=== PATIENT | male | born 2000 | race Caucasian/White ===

== ENCOUNTER 2023-08-08 04:06 | Day surgery (SDC) | payer OTHER ==
[2023-08-08] VITALS (231 sets, daily range): BP systolic 85–135; BP diastolic 54–120
[~2023-08-08] VITALS: Ht 170.2 cm; Wt 79.2 kg
[2023-08-08] MEDS ORDERED: ACETAMINOPHEN 500 MG TAB PO ONE (07:25)
[2023-08-08] MEDS ORDERED: diazePAM 5 MG/TAB PO PRN ×2 (07:30→08:30)
[2023-08-08] MEDS ORDERED: ALBUTEROL SULFATE 2.5 MG VIAL IN PRN (07:30)
[2023-08-08] MEDS ORDERED: CYANOCOBALAMIN 500 MCG/TAB ( B12) PO PRN (07:30)
[2023-08-08] MEDS ORDERED: LACTATED RINGER'S 1,000 ML IV PRN ×3 (07:30→19:00)
[2023-08-08] MEDS ORDERED: cloNIDine HCL 0.1 MG/TAB PO PRN (07:30)
[2023-08-08] MEDS ORDERED: PANTOPRAZOLE SODIUM Sesquihydr 40 MG/TAB PO PRN (07:30)
[2023-08-08] MEDS ORDERED: SCOPOLAMINE 1.5 MG DIS TD PRN (07:30)
[2023-08-08] MEDS ORDERED: FAMOTIDINE 20 MG/TAB PO PRN (07:30)
[2023-08-08] MEDS ORDERED: ASCORBIC ACID 4,000 MG in SODIUM CHLORIDE 0.9% 1,000 ML IV SCH (08:00)
[2023-08-08 08:34] LABS: BASO% 0.3 % (0-3); EOS% 3.8 % (0-8); HEMATOCRIT 39.3 % (39.0-50.0); IMMATURE GRANULOCYTES 0.1 % (0.0-5.0); LYMPH% 31.5 % (15-41); MEAN CELL VOLUME 96.1 fL CALC (80.0-100.0); MEAN CORPUSCULAR HGB 31.8 pG CALC (26.0-32.0); MEAN CORPUSCULAR HGB CONC 33.1 g/dL CAL (32.0-36.0); MONO% 6.4 % (2-13); NEUT# 4.29 thou/uL (1.82-7.42); NEUT% 57.9 % (42-76); RED BLOOD COUNT 4.09 mill/uL (4.70-6.10); RED CELL DISTRI WIDTH 12.5 % (11.5-15.5)
[2023-08-08 08:58] LABS: ALBUMIN 4.4 g/dL (3.2-5.0); ALKALINE PHOSPHATASE 56 u/l (38-126); ANION GAP 6 (6-22 (CALC)); BILIRUBIN, TOTAL 0.2 mg/dL (0.2-1.3); BUN 17 mg/dL (9-20); BUN/CREATININE RATIO 19 (12-20 (CALC)); CARBON DIOXIDE 31 mmol/l (22-30); CHLORIDE 105 mmol/l (95-108); CREATININE 0.9 mg/dL (0.7-1.3); GFR FOR AFR.AMER. > 60 ML/MIN (>=60 (CALC)); GFR OTHER RACES > 60 ML/MIN (>=60 (CALC)); POTASSIUM 3.9 mmol/l (3.5-5.1); SGOT/AST 27 u/l (17-59); SODIUM 139 mmol/l (137-146); TOTAL PROTEIN 6.6 g/dL (6.3-8.2)
[2023-08-08] MEDS ORDERED: XANAX0.25 MG PO (09:49)
[2023-08-08] MEDS ORDERED: POTASSIUM CHLORIDE 20 MEQ/100 ML BAG IV PRN (10:10)
[2023-08-08] MEDS ORDERED: LIDOCAINE HCL 1% (10MG/ML) 100 MG/10 ML MDV IV PRN (10:10)
[2023-08-08] MEDS ORDERED: cloNIDine HCL 0.1 MG/TAB VT PRN (10:10)
[2023-08-08] MEDS ORDERED: DEXAMETHASONE SOD. PHOSPHATE 10 MG/ML VIAL IV PRN (10:10)
[2023-08-08] MEDS ORDERED: MIDAZOLAM HCL 2 MG/2 ML VIAL IV PRN (10:10)
[2023-08-08] MEDS ORDERED: THIAMINE HCL 100 MG/ML 2ML VIAL IV PRN (10:10)
[2023-08-08] MEDS ORDERED: OCTREOTIDE ACETATE 100 MCG/VIAL SDV SC PRN (10:10)
[2023-08-08] MEDS ORDERED: NALTREXONE HCL 50 MG/TAB VT PRN (10:10)
[2023-08-08] MEDS ORDERED: ONDANSETRON HCl 4 MG/2 ML SDV IV PRN ×3 (10:10→19:00)
[2023-08-08] MEDS ORDERED: DiphenhydrAMINE HCL 50 MG/ML SDV IV PRN (10:10)
[2023-08-08] MEDS ORDERED: diazePAM 5 MG/TAB VT PRN (10:10)
[2023-08-08] MEDS ORDERED: PROPOFOL 100 ML IV PRN (10:10)
[2023-08-08] MEDS ORDERED: STERILE WATER FOR IRRIGATION 1,000 ML BTL IR PRN (10:10)
[2023-08-08] MEDS ORDERED: LIDOCAINE HCL 1% (10MG/ML) 100 MG/10 ML MDV VT PRN ×2 (10:10)
[2023-08-08] MEDS ORDERED: MAGNESIUM SULFATE HEPTAHYDRATE 100 ML IV PRN (10:10)
[2023-08-08] MEDS ORDERED: cloNIDine HYDROCHLORIDE 100 MCG/ML 10 ML INJ IV PRN (10:10)
[2023-08-08] MEDS ORDERED: PROPOFOL 10 MG/ML 100ML VIAL IV PRN (10:10)
[2023-08-08] MEDS ORDERED: SUCCINYLCHOLINE CHLORIDE 20 MG/ML 10ML VIAL IV PRN (10:10)
[2023-08-08] MEDS ORDERED: ROCURONIUM BROMIDE 10 MG/ML 5ML VIAL IV PRN (10:10)
[2023-08-08] MEDS ORDERED: PHENYLEPHRINE HCL 10 MG/ML VIAL ONE (10:43)
[2023-08-08] MEDS ORDERED: SODIUM CHLORIDE 0.9% 250 ML IV ONE (10:43)
[2023-08-08] MEDS ORDERED: NALTREXONE50 MG PO (13:04)
[2023-08-08] MEDS ORDERED: CLONIDINE0.1 MG PO (13:04)
[2023-08-08] MEDS ORDERED: KLONOPIN2 MG PO (13:04)
[2023-08-08] MEDS ORDERED: Pantoprazole Sodium 40 MG VIAL (Protonix) IV SCH (17:30)
[2023-08-08] MEDS ORDERED: NICOTINE TRANSDERMAL 21 MG/PATCH TD SCH (18:45)
[2023-08-08] MEDS ORDERED: SCOPOLAMINE 1.5 MG DIS TD SCH (18:45)
[2023-08-08] MEDS ORDERED: ACETAMINOPHEN 1,000 MG/100 ML VIAL IV PRN (19:00)
[2023-08-08] MEDS ORDERED: PROMETHAZINE HCL 12.5 MG in SODIUM CHLORIDE 0.9% 50 ML IV PRN (19:00)
[2023-08-08] MEDS ORDERED: PROMETHAZINE HCL 25 MG in SODIUM CHLORIDE 0.9% 50 ML IV PRN (19:00)
[2023-08-08] MEDS ORDERED: HALOPERIDOL LACTATE 5 MG/ML SDV IV PRN (19:00)
[2023-08-08] MEDS ORDERED: KETOROLAC TROMETHAMINE 30 MG/ML SDV IV PRN (19:00)
[2023-08-08] MEDS ORDERED: DEXAMETHASONE SODIUM PHOSPHATE PF 10 MG/ML SDV IV PRN (19:00)
[2023-08-08] MEDS ORDERED: ACETAMINOPHEN 500 MG TAB PO PRN (19:00)
[2023-08-08] MEDS ORDERED: diazePAM 10 MG/2 ML VIAL IV PRN (21:00)
[2023-08-08] MEDS ORDERED: PATIENT' OWN MED CONTROLLED 1 EA DOSE IV PRN (21:00)
[2023-08-08] MEDS ORDERED: clonazePAM 1 MG/TAB PO SCH (23:00)
[2023-08-08] MEDS ORDERED: cloNIDine HCL 0.1 MG/TAB PO SCH (23:00)
[2023-08-09] MEDS ORDERED: clonazePAM 1 MG/TAB PO PRN ×2 (04:00→08:00)
[2023-08-09] MEDS ORDERED: cloNIDine HCL 0.1 MG/TAB PO PRN (04:00)
[2023-08-09 06:29] LABS: BASO% 0.1 % (0-3); HEMATOCRIT 40.6 % (39.0-50.0); HEMOGLOBIN 14.2 g/dl (14.0-18.0); IMMATURE GRANULOCYTES 0.2 % (0.0-5.0); LYMPH% 5.9 % (15-41); MEAN CELL VOLUME 92.1 fL CALC (80.0-100.0); MEAN CORPUSCULAR HGB 32.2 pG CALC (26.0-32.0); MONO% 1.3 % (2-13); NEUT# 13.72 thou/uL (1.82-7.42); NEUT% 92.5 % (42-76); RED BLOOD COUNT 4.41 mill/uL (4.70-6.10); RED CELL DISTRI WIDTH 12.1 % (11.5-15.5)
[2023-08-09 06:45] LABS: ALBUMIN 4.6 g/dL (3.2-5.0); ALKALINE PHOSPHATASE 66 u/l (38-126); ANION GAP 14 (6-22 (CALC)); BILIRUBIN, TOTAL 0.5 mg/dL (0.2-1.3); BUN 10 mg/dL (9-20); BUN/CREATININE RATIO 15 (12-20 (CALC)); CARBON DIOXIDE 24 mmol/l (22-30); CHLORIDE 108 mmol/l (95-108); CREATININE 0.7 mg/dL (0.7-1.3); GFR FOR AFR.AMER. > 60 ML/MIN (>=60 (CALC)); GFR OTHER RACES > 60 ML/MIN (>=60 (CALC)); MAGNESIUM 1.9 mg/dL (1.6-2.3); POTASSIUM 3.8 mmol/l (3.5-5.1); SGOT/AST 34 u/l (17-59); SODIUM 142 mmol/l (137-146); TOTAL PROTEIN 7.1 g/dL (6.3-8.2)
[2023-08-09 07:06] VITALS: BP 108/69
[2023-08-09 07:34] VITALS: BP 108/69
[2023-08-09] MEDS ORDERED: NALTREXONE HCL 50 MG/TAB PO SCH (08:00)
[2023-08-09] MEDS ORDERED: PANTOPRAZOLE SODIUM Sesquihydr 40 MG/TAB PO SCH (08:00)
[2023-08-09] MEDS ORDERED: ACETAMINOPHEN 325 MG/TAB PO SCH (08:00)
[2023-08-09] MEDS ORDERED: cloNIDine HCL 0.1 MG/TAB PO SCH (08:00)
[2023-08-09] MEDS ORDERED: POTASSIUM CHLORIDE 20 MEQ/TAB PO SCH (08:00)
[2023-08-09] MEDS ORDERED: ACETAMINOPHEN 500 MG TAB PO PRN (09:00)
[2023-08-09] MEDS ORDERED: Cholecalciferol 2,000 UNIT/TAB PO PRN (09:00)
[2023-08-09] MEDS ORDERED: MAGNESIUM OXIDE 400 MG/TAB PO PRN (09:00)
== END 2023-08-09 15:12 | disposition home or self-care (01) | DRG 897 ==
LOC: ANR 04:06 → MS2 04:06 → ANR 07:00
PROVIDERS: ATTEND Anesthesiology
DX: F11.20 Opioid dependence, uncomplicated (principal)
CPT/HCPCS: J2354; J3475; S0164

== ENCOUNTER 2024-05-08 04:09 | Day surgery (SDC) | payer OTHER ==
[2024-05-08] VITALS (245 sets, daily range): BP systolic 93–148; BP diastolic 46–101
[~2024-05-08] VITALS: Ht 175.3 cm; Wt 71.0 kg
[~2024-05-08 04:09] MED LIST: CLONIDINE0.1 MG PO; KLONOPIN2 MG PO; NALTREXONE50 MG PO; XANAX0.25 MG PO
--- NOTE | 2024-05-08 07:00 | NUR ---
Arrival & Pre-treatment Patient arrived to the ANR suite, identification and demographics confirmed. Patient to room 8, AAO, ambulatory, vitals obtained, ID/allergy/fall bands placed, changed into hospital gown, JUANCARLOS hose, and non-slip socks. Procedure and timeline explained for treatment and discharge. All questions answered and the patient presents no concerns at this time.
[2024-05-08] MEDS ORDERED: PANTOPRAZOLE SODIUM Sesquihydr 40 MG/TAB PO PRN (07:30)
[2024-05-08] MEDS ORDERED: ALBUTEROL SULFATE 2.5 MG VIAL IN PRN (07:30)
[2024-05-08] MEDS ORDERED: CYANOCOBALAMIN 500 MCG/TAB ( B12) PO PRN (07:30)
[2024-05-08] MEDS ORDERED: LACTATED RINGER'S 1,000 ML IV PRN ×3 (07:30→19:00)
[2024-05-08] MEDS ORDERED: diazePAM 5 MG/TAB PO PRN ×2 (07:30→08:30)
[2024-05-08] MEDS ORDERED: cloNIDine HCL 0.1 MG/TAB PO PRN (07:30)
[2024-05-08] MEDS ORDERED: FAMOTIDINE 20 MG/TAB PO PRN (07:30)
[2024-05-08] MEDS ORDERED: SCOPOLAMINE 1.5 MG DIS TD PRN (07:30)
--- NOTE | 2024-05-08 07:40 | NUR ---
Dr. Beltran telephoned with patient intake information including usage, dose, last dose/time taken and initial vital signs. Patient history and allergies reviewed with MD. Orders received for 10mg PO Valium and 0.1 mg PO Clonidine now. Will reassess per protocol in 1.5 hours and update MD with assessment and vitals. Patient medicated per MD orders. In addition to Clonidine and Valium, patient received 1000 mcg B12 PO, 20 mg Pepcid PO, and Scopolamine TD patch. Medication indication and education provided prior to administration.
[2024-05-08] MEDS ORDERED: ASCORBIC ACID 4,000 MG in SODIUM CHLORIDE 0.9% 1,000 ML IV SCH (08:00)
[2024-05-08 08:50] LABS: ALBUMIN 4.2 g/dL (3.2-5.0); BASO% 0.2 % (0-3); EOS% 1.4 % (0-8); HEMATOCRIT 40.2 % (39.0-50.0); HEMOGLOBIN 13.6 g/dl (14.0-18.0); IMMATURE GRANULOCYTES 0.2 % (0.0-5.0); LYMPH% 12.4 % (15-41); MEAN CELL VOLUME 93.5 fL CALC (80.0-100.0); MEAN CORPUSCULAR HGB 31.6 pG CALC (26.0-32.0); MEAN CORPUSCULAR HGB CONC 33.8 g/dL CAL (32.0-36.0); MONO% 4.8 % (2-13); NEUT# 10.08 thou/uL (1.82-7.42); POTASSIUM 4.1 mmol/l (3.5-5.1); RED BLOOD COUNT 4.3 mill/uL (4.70-6.10); RED CELL DISTRI WIDTH 11.7 % (11.5-15.5); TOTAL PROTEIN 6.5 g/dL (6.3-8.2)
[2024-05-08 08:52] LABS: BILIRUBIN, TOTAL 0.2 mg/dL (0.2-1.3)
[2024-05-08] MEDS ORDERED: POTASSIUM CHLORIDE 10 MEQ/50 ML BAG IV PRN (08:55)
[2024-05-08] MEDS ORDERED: DiphenhydrAMINE HCL 50 MG/ML SDV IV PRN (08:55)
[2024-05-08] MEDS ORDERED: PROPOFOL 10 MG/ML 100ML VIAL IV PRN (08:55)
[2024-05-08] MEDS ORDERED: ROCURONIUM BROMIDE 10 MG/ML 5ML VIAL IV PRN (08:55)
[2024-05-08] MEDS ORDERED: PROPOFOL 100 ML IV PRN (08:55)
[2024-05-08] MEDS ORDERED: OCTREOTIDE ACETATE 100 MCG/VIAL SDV SC PRN (08:55)
[2024-05-08] MEDS ORDERED: THIAMINE HCL 100 MG/ML 2ML VIAL IV PRN (08:55)
[2024-05-08] MEDS ORDERED: DEXAMETHASONE SODIUM PHOSPHATE PF 10 MG/ML SDV IV PRN ×2 (08:55→19:00)
[2024-05-08] MEDS ORDERED: MIDAZOLAM HCL 2 MG/2 ML VIAL IV PRN (08:55)
[2024-05-08] MEDS ORDERED: NALTREXONE HCL 50 MG/TAB VT PRN (08:55)
[2024-05-08] MEDS ORDERED: LIDOCAINE HCL 1% (10MG/ML) 100 MG/10 ML MDV VT PRN ×2 (08:55)
[2024-05-08] MEDS ORDERED: MAGNESIUM SULFATE HEPTAHYDRATE 100 ML IV PRN (08:55)
[2024-05-08] MEDS ORDERED: STERILE WATER FOR IRRIGATION 1,000 ML BTL IR PRN (08:55)
[2024-05-08] MEDS ORDERED: ONDANSETRON HCl 4 MG/2 ML SDV IV PRN ×3 (08:55→19:00)
[2024-05-08] MEDS ORDERED: LIDOCAINE HCL 1% (10MG/ML) 100 MG/10 ML MDV IV PRN (08:55)
[2024-05-08] MEDS ORDERED: cloNIDine HYDROCHLORIDE 100 MCG/ML 10 ML INJ IV PRN (08:55)
[2024-05-08] MEDS ORDERED: diazePAM 5 MG/TAB VT PRN (08:55)
[2024-05-08] MEDS ORDERED: SUCCINYLCHOLINE CHLORIDE 20 MG/ML 10ML VIAL IV PRN (08:55)
[2024-05-08] MEDS ORDERED: cloNIDine HCL 0.1 MG/TAB VT PRN (08:55)
[2024-05-08] MEDS ORDERED: XANAX1 MG PO (09:22)
--- NOTE | 2024-05-08 09:39 | NUR ---
Patient resting comfortably in bed. Easily aroused, maintains focus, and drifts back to sleep. No signs of active withdrawal or distress noted at this time. Continuous SPO2, rhythm, and respiratory monitoring initiated. IVF @ 250 mL/HR, room air, VSS.
--- NOTE | 2024-05-08 10:00 | NUR ---
DR. DORAN AT THE BEDSIDE COMPLETING HIS ASSESSMENT . QUESTIONS REGUARDING PROCEDURE ASKED AND ANSWERED.
--- NOTE | 2024-05-08 10:30 | NUR ---
Induction Note Patient to ANR procedure room. Time out performed at 1030. Patient placed on monitors, Angelica hugger, bilateral wrist restraints applied for ET tube protection. Versed 5mg given IV push at 1031 Tourniquet applied to right arm Lidocaine 100mg given at 1032 IV push followed by Rocoronium 10mg at 1033 IV push and held for 90 seconds. Propofol bolus of 120mg given at 1035 IV push. Succinylcholine 80mg given IV push at 1036. Smooth intubation with 7.5 ETT. Positive CO2. Positive Auscultation for air exchange. Patient placed on ventilator for spontaneous ventilation. Placed on Propofol IV drip at 1037. OG inserted. Positive air on auscultation. Positive gastric content. Stomach washed at this time.
--- NOTE | 2024-05-08 10:45 | NUR ---
OG close note Stomach washed at this time. Naltrexone 50 mg with Clonidine 0.3 mg via OG tube. OG will be clamped for 45 minutes.
--- NOTE | 2024-05-08 11:30 | NUR ---
OG open note OG open at this time. Gastric content draining into drainage bag. OG to drain for 45 minutes. Propofol will be titrated down based on patient.
--- NOTE | 2024-05-08 12:15 | NUR ---
OG close note Stomach washed at this time. Naltrexone 50 mg with Clonidine 0.1 mg via OG tube. OG will be clamped for 45 minutes.
--- NOTE | 2024-05-08 13:45 | NUR ---
OG close note Stomach washed at this time. Naltrexone 50 mg with Clonidine 0.2 mg via OG tube. OG will be clamped for 45 minutes.
--- NOTE | 2024-05-08 15:15 | NUR ---
WAITING NO CLOSE SPOKE WITH DR. DORAN.AND PATIENT NEEDS MORE TIME. NO ADDITIONAL MEDICATIONS ORDERED AT THIS TIME.
--- NOTE | 2024-05-08 16:45 | NUR ---
OG close note Stomach washed at this time. Naltrexone 25 mg with Clonidine 0.2 mg via OG tube. OG will be clamped for 45 minutes.
--- NOTE | 2024-05-08 17:15 | NUR ---
OG open note OG open at this time. Gastric content draining into drainage bag. OG to drain . Propofol will be titrated down based on patient.
--- NOTE | 2024-05-08 17:52 | NUR ---
Extubation note Closing medications given Benadryl 50mg IV push, Decadron 10mg IV push,Magnesium 4 grams IV, Zofran 8mg IV push, Octreotide 100mcg SC. Stomach washed out prior to extubation. Suctioned gastric content. OG removed. Patient extubated. Propofol Discontinued. Wrist restraints removed. Angelica hugger Removed. See ANR Moderate sedate recovery record for further notes and assessment.
[2024-05-08] MEDS ORDERED: SUCRALFATE 1 GM/TAB PO SCH (17:56)
--- NOTE | 2024-05-08 18:28 | NUR ---
TRANSER NOTE Patient transferred to medical-surgical unit. Report given to nursse at bedside. Head to toe assessment, treatment, medications, I/O, IV access reviewed with RN. All questions answered. IVF to continue at 100 ml/hr, NC @ 4L, no adventitious breath sounds. Safety precautions in place, bed locked and in lowest position, call light in reach. Handoff of care at the time this note.
--- NOTE | 2024-05-08 18:43 | NUR ---
patient arrived to sc from anr bedside report was given from maryann; patient on 2L ; no s.s of distress at this time; LR @100 running on LW; eye covering applied; erendira hugger applied to bed; patient stable; personal items in ANR locker; bed in lowest postion; safety measures in place
[2024-05-08] MEDS ORDERED: PROMETHAZINE HCL 12.5 MG in SODIUM CHLORIDE 0.9% 50 ML IV PRN (19:00)
[2024-05-08] MEDS ORDERED: LORazepam 2 MG/ML IV PRN ×2 (19:00)
[2024-05-08] MEDS ORDERED: PROMETHAZINE HCL 25 MG in SODIUM CHLORIDE 0.9% 50 ML IV PRN (19:00)
[2024-05-08] MEDS ORDERED: KETOROLAC TROMETHAMINE 30 MG/ML SDV IV PRN (19:00)
[2024-05-08] MEDS ORDERED: HALOPERIDOL LACTATE 5 MG/ML SDV IV PRN (19:00)
[2024-05-08] MEDS ORDERED: ACETAMINOPHEN 1,000 MG/100 ML VIAL IV PRN (19:00)
[2024-05-08] MEDS ORDERED: ACETAMINOPHEN 500 MG TAB PO PRN (19:00)
[2024-05-08] MEDS ORDERED: PATIENT' OWN MED CONTROLLED 1 EA DOSE IV PRN (21:00)
[2024-05-08] MEDS ORDERED: cloNIDine HCL 0.1 MG/TAB PO SCH (23:00)
[2024-05-08] MEDS ORDERED: clonazePAM 1 MG/TAB PO PRN (23:00)
--- NOTE | 2024-05-09 | NUR ---
ADMINISTERED SCHEDULED MEDS PER EMAR WELL PRN MEDS FOR PAIN AND NAUSEA PER EMAR. PT C/O STOMACH CRAMPS AND UPSET STOMACH AT THIS TIME. PT IS AROUSABLE TO SPEECH, HAS BEEN RESTING COMFORTABLY. PT ABLE TO AMBULATE TO ABTHROOM WITH STAND BY ASSIST AND STEADY GAIT. VSS. NO S/S OF DISTERSS. PT LAYING IN BED ON LEFT SIDE. IVF RUNNING PER EMAR. BED ALARM ON AND SAFETY PRECAUTIONS IN PLACE.
[2024-05-09 03:21] VITALS: BP 127/51
[2024-05-09] MEDS ORDERED: cloNIDine HCL 0.1 MG/TAB PO PRN (04:00)
[2024-05-09] MEDS ORDERED: NALTREXONE HCL 50 MG/TAB PO SCH (04:00)
[2024-05-09] MEDS ORDERED: clonazePAM 1 MG/TAB PO PRN ×2 (04:00→08:00)
--- NOTE | 2024-05-09 04:00 | NUR ---
ADMINSITERED SCHEDULED MEDS PER EMAR AND MEDS FOR NAUSEA AND PAIN. PT C/O UPSET STOMACH. PT IS A/3, ON RM AIR, AMBULATED TO BATHROOM WITH STAND BY ASSIST AND VOIDS W/O DIFFICULTY. PT LAYING IN BED SUPINE. IVR RUNNING PER EMAR. VSS. NO S/S OF DISTRESS. BED ALARM ON AND SAFETY PRECAUTIONS IN PLACE.
[2024-05-09 05:05] LABS: BASO% 0.1 % (0-3); HEMOGLOBIN 12.8 g/dl (14.0-18.0); IMMATURE GRANULOCYTES 0.2 % (0.0-5.0); LYMPH% 6.9 % (15-41); MEAN CELL VOLUME 90.9 fL CALC (80.0-100.0); MEAN CORPUSCULAR HGB 31.4 pG CALC (26.0-32.0); MEAN CORPUSCULAR HGB CONC 34.6 g/dL CAL (32.0-36.0); MONO% 1.5 % (2-13); NEUT# 13.55 thou/uL (1.82-7.42); NEUT% 91.3 % (42-76); RED BLOOD COUNT 4.07 mill/uL (4.70-6.10); RED CELL DISTRI WIDTH 11.4 % (11.5-15.5)
[2024-05-09 05:12] LABS: ALBUMIN 3.9 g/dL (3.2-5.0); BILIRUBIN, TOTAL 0.3 mg/dL (0.2-1.3); CREATININE 0.7 mg/dL (0.7-1.3); POTASSIUM 3.3 mmol/l (3.5-5.1); TOTAL PROTEIN 6.3 g/dL (6.3-8.2)
[2024-05-09 08:00] VITALS: BP 127/51
[2024-05-09] MEDS ORDERED: PANTOPRAZOLE SODIUM Sesquihydr 40 MG/TAB PO SCH (08:00)
[2024-05-09] MEDS ORDERED: ACETAMINOPHEN 325 MG/TAB PO SCH (08:00)
[2024-05-09] MEDS ORDERED: cloNIDine HCL 0.1 MG/TAB PO SCH (08:00)
--- NOTE | 2024-05-09 08:00 | NUR ---
ASSUMED CARE OF THE PATIENT. PATIENT HAS NO C/O PAIN. PATIENT ASSISTED TO THE BATHROOM. LOOSE STOLLS AT THIS TIME. PATIENT MEDICATED WITH PROTONIX AND CLONIDINE ORDERED. ORAL APAP HELD DUE TO RECIEVING IV APAP AT 0400. PATIENT TOLERATING FOOD AND LIQUIDS.
[2024-05-09] MEDS ORDERED: ACETAMINOPHEN 500 MG TAB PO PRN (09:00)
[2024-05-09] MEDS ORDERED: MAGNESIUM OXIDE 400 MG/TAB PO PRN (09:00)
[2024-05-09] MEDS ORDERED: Cholecalciferol 2,000 UNIT/TAB PO PRN (09:00)
--- NOTE | 2024-05-09 09:49 | NUR ---
PATIENT SITTING UP IN A CHAIR AT THE BEDSIDE. SN CONTACTED DR. DORAN TO INFORM HIM ON THE MORNING LAB WORK. PATIENTS POTASSIUM LEVEL IS DOWN TO 3.3. 100MEQ OF POTASSIUM ORDERED AT THIS TIME.
[2024-05-09] MEDS ORDERED: POTASSIUM CHLORIDE 20 MEQ/TAB PO ONE ×2 (10:00→12:00)
--- NOTE | 2024-05-09 10:37 | NUR ---
PATIENT IS UP AND IN THE SHOWER. PATIENT IS STATES HE IS READY FOR D/C . DISCHARGE IS SCHEDUALED AT 2:30 TODAY. PATIENT BELONGINGS REMOVED FROM ANR LOCKER AND BROUGHT TO THE PATIENT.
--- NOTE | 2024-05-09 11:25 | NUR ---
PATIENT IS SHOWERED, DRESSED AND READY TO BE D/C . GINA BARRAGAN CONTACTED FAMILY MEMBER FOR EARLY D/C. PATIENT MEDICATED WITH TYLENOL, VITAMIN D, MAG, AN ADDITIONAL 40MEQ OF KCL AND 1 MG OF ATIVAN FOR MODERATE ANXIETY. PATIENT RETURNED TO BED WHILE WAITING FOR D/C.
[2024-05-09 11:28] VITALS: BP 122/80
--- NOTE | 2024-05-09 12:00 | NUR ---
PATIENT PROVIDED D/C INSTRUCTIONS BY GINA ARIZMENDI RN. IV IN THE RIGHT FOREARM REMOVED AND PRESSURE DRESSING APPLIED. PATIENT AMBULATED WITH GINA ARIZMENDI RN UPON D/C.
== END 2024-05-09 11:57 | disposition home or self-care (01) | DRG 897 ==
LOC: ANR 04:09 → MS2 04:10 → ANR 08:00 → MS2 18:41 → ANR 05-09 11:57
PROVIDERS: ATTEND Anesthesiology
DX: F11.20 Opioid dependence, uncomplicated (principal)
CPT/HCPCS: J0131; J1100; J2060; J2354; J3475